=== PATIENT | male | born 1970 | race Caucasian/White ===

== ENCOUNTER 2018-04-03 10:46 | Emergency (ER) | payer MEDICAID, OTHER ==
[~2018-04-03] VITALS: Ht 182.9 cm; Wt 74.8 kg
[2018-04-03] MEDS ORDERED: fentaNYL INJECTION 100 MCG/2 ML AMP ONE (10:58)
[2018-04-03 11:09] LABS: HEMOGLOBIN 15.2 G/DL (13.3-17.7); MEAN PLATELET VOLUME 10.9 FL (7.4-10.4); RED BLOOD COUNT 4.91 10^6/uL (4.35-5.85); RED CELL DISTRIBUTION WIDTH 13.2 % (10.0-14.5); WHITE BLOOD COUNT 10.7 10^3/uL (4.3-11.0)
--- NOTE | 2018-04-03 11:09 | ED Fall/Injury ---
General Stated Complaint: FELL OFF LADDER Source: patient Exam Limitations: no limitations History of Present Illness Date Seen by Provider: Apr 03, 2018 Time Seen by Provider: 11:05 Initial Comments To ER with reports of a fall off of a ladder. He is not from here, he is from a town near [facility]. He is here helping a friend. He fell about 10-12 feet off a ladder landing on his left side. He complains of pain to the left side of his head, to his neck, left upper abdomen lower chest. He drove himself to the emergency room and is ambulatory to room 1. Questionable loss of consciousness. He is not on any anticoagulants or any antiplatelet drug. Occurred: just prior to arrival Severity: moderate Injuries/Pain Location: head, neck, abdomen Associated Symptoms (Fall): Abdominal Pain (left-sided upper), Chest Pain ( sided lower), Neck Pain Allergies and Home Medications Allergies Coded Allergies: Penicillins (Verified Allergy, Unknown, 04/03/18) Home Medications Hydrocodone/Acetaminophen 1 Each Tablet, 1 EACH PO Q4H PRN for PAIN-MODERATE Prescribed by: CJ BRAGG on 04/03/18 1216 Patient Home Medication List Home Medication List Reviewed: Yes Review of Systems Constitutional: see HPI Eyes: No Symptoms Reported Ears, Nose, Mouth, Throat: no symptoms reported Respiratory: no symptoms reported; No cough, No dyspnea on exertion, No short of breath Cardiovascular: chest pain Gastrointestinal: abdominal pain Genitourinary: no symptoms reported Musculoskeletal: no symptoms reported Skin: no symptoms reported Psychiatric/Neurological: No Symptoms Reported Past Kwddcey-Zmfcul-Dzdbkx Hx Patient Social History Recent Foreign Travel: No Contact w/Someone Who Travel: No Physical Exam Vital Signs Vital Signs - First Documented 04/03/18 10:46 Temp 96.4 Pulse 133 Resp 25 B/P (MAP) 137/80 (99) Pulse Ox 98 O2 Delivery Room Air Capillary Refill : Height, Weight, BMI Height: '" Weight: lbs. oz. kg; BMI Method: General Appearance: WD/WN, no apparent distress, other (anxious and tachycardic upon arrival with a heart rate of 113. GCS is 15 however) HEENT: PERRL/EOMI, TMs normal, other (large hematoma over the lateral aspect of the left eyebrow and superior to this.) Neck: non-tender, full range of motion; No tender lateral, No tender midline Cardiovascular: no murmur, tachycardia Respiratory: lungs clear, normal breath sounds, no respiratory distress, no accessory muscle use, other (left lateral lower chest is tender to palpation) Gastrointestinal: normal bowel sounds, soft, tenderness (left upper lateral abdomen is tender to palpation there is no ecchymosis) Extremities: normal range of motion, non-tender, other (or abrasions to the anterior knees bilaterally. No deformity or swelling. Bleeding abrasion to the dorsal aspect of the right hand over the distal third metacarpal) Neurologic/Psychiatric: alert, normal mood/affect, oriented x 3 Skin: normal color, warm/dry Mary Ellen Coma Score Best Eye Response: (4) Open Spontaneously Best Verbal Response: (5) Oriented Best Motor Response: (6) Obeys Commands Mary Ellen Total: 15 Progress/Results/Core Measures Results/Orders Lab Results Laboratory Tests Test 04/03/18 10:55 Range/Units White Blood Count 10.7 4.3-11.0 10^3/uL Red Blood Count 4.91 4.35-5.85 10^6/uL Hemoglobin 15.2 13.3-17.7 G/DL Hematocrit 46 40-54 % Mean Corpuscular Volume 93 80-99 FL Mean Corpuscular Hemoglobin 31 25-34 PG Mean Corpuscular Hemoglobin Concent 33 32-36 G/DL Red Cell Distribution Width 13.2 10.0-14.5 % Platelet Count 459 H 130-400 10^3/uL Mean Platelet Volume 10.9 H 7.4-10.4 FL Sodium Level 134 L 135-145 MMOL/L Potassium Level 3.8 3.6-5.0 MMOL/L Chloride Level 98 98-107 MMOL/L Carbon Dioxide Level 16 L 21-32 MMOL/L Anion Gap 20 H 5-14 MMOL/L Blood Urea Nitrogen 15 7-18 MG/DL Creatinine 0.94 0.60-1.30 MG/DL Estimat Glomerular Filtration Rate > 60 BUN/Creatinine Ratio 16 Glucose Level 159 H 70-105 MG/DL Calcium Level 9.9 8.5-10.1 MG/DL Corrected Calcium 9.6 8.5-10.1 MG/DL Total Bilirubin 0.5 0.1-1.0 MG/DL Aspartate Amino Transf (AST/SGOT) 16 5-34 U/L Alanine Aminotransferase (ALT/SGPT) 24 0-55 U/L Alkaline Phosphatase 55 40-136 U/L Total Protein 7.2 6.4-8.2 GM/DL Albumin 4.4 3.2-4.5 GM/DL Serum Alcohol < 10 <10 MG/DL My Orders Orders - CJ BRAGG APRN Cbc No Diff (04/03/18 11:03) Type And Screen (04/03/18 11:03) Iv Heplock-Insert (Order) (04/03/18 11:03) Comprehensive Metabolic Panel (04/03/18 11:03) Alcohol (04/03/18 11:03) Drug Screen Stat (Urine) (04/03/18 11:03) Chest 1 View, Ap/Pa Only (04/03/18 11:03) Fentanyl Injection (Sublimaze Injection (04/03/18 11:15) Ct Head/Cervical Spine Wo (04/03/18 11:05) Ct Chest/Abdomen/Pelvis W (04/03/18 11:05) Fentanyl Injection (Sublimaze Injection (04/03/18 11:45) Dipht,Pertuss(Acell),Tet Adult (Boostrix (04/03/18 12:15) Medications Given in ED Current Medications Medications Dose Ordered Sig/Andrew Route Start Time Stop Time Status Last Admin Dose Admin Fentanyl Citrate 50 mcg ONCE ONCE IVP 04/03/18 11:45 04/03/18 11:46 DC 04/03/18 11:44 50 MCG Fentanyl Citrate 75 mcg ONCE ONCE IVP 04/03/18 11:15 04/03/18 11:16 DC 04/03/18 11:05 75 MCG Vital Signs/I&O 04/03/18 10:46 Temp 96.4 Pulse 133 Resp 25 B/P (MAP) 137/80 (99) Pulse Ox 98 O2 Delivery Room Air Initial ECG Impression Time: 10:59 Initial ECG Rate: 111 Initial ECG Rhythm: S.Tach Initial ECG Intervals: Normal Initial ECG Impression: Normal Diagnostic Imaging Diagonstic Imaging: Xray Plain Films/CT/US/NM/MRI: chest Comments NAME: JEFF CARR [facility] REC#: [id number] PT STATUS: REG ER : 1970 PHYSICIAN: CJ BRAGG APRN ADMIT DATE: 04/03/18/ER Draft Date of Exam:04/03/18 CHEST 1 VIEW, AP/PA ONLY INDICATION: Fall from a ladder. TIME OF EXAM: 11:10 AM No prior studies are available for comparison. FINDINGS: The heart size is normal. The pulmonary vascularity is unremarkable. The lungs are clear. No infiltrate, effusion or pneumothorax is detected. IMPRESSION: No acute cardiopulmonary process is detected. Dictated on workstation # [id number] Dict: 04/03/18 1116 Trans: 04/03/18 1117 [id number] Interpreted by: TRACIE CLARK MD Electronically signed by: NAME: JEFF CARR [facility] REC#: [id number] PT STATUS: REG ER : 1970 PHYSICIAN: CJ BRAGG APRN ADMIT DATE: 04/03/18/ER Draft Date of Exam:04/03/18 CT CHEST/ABDOMEN/PELVIS W PROCEDURE: CT chest, abdomen, and pelvis with contrast. TECHNIQUE: Multiple contiguous axial images were obtained through the chest, abdomen, and pelvis after the administration of intravenous contrast. INDICATION: Trauma, fall from a ladder with left-sided pain. CT CHEST: No mediastinal hematoma or great vessel injury is identified. No pericardial fluid or hemothorax is detected. No parenchymal contusion or pneumothorax is identified. The bony structures are unremarkable. IMPRESSION: Unremarkable CT of the chest. CT ABDOMEN AND PELVIS: There is some generalized low density throughout the liver consistent with hepatic steatosis. No focal liver laceration is seen. The gallbladder is unremarkable. The pancreas and spleen are unremarkable. No focal splenic laceration is seen. No adrenal hematoma is identified. No renal injury is seen. There is a tiny dense structure in the left kidney, perhaps a tiny nonobstructing calculus. The aorta is non-aneurysmal. The bowel loops are nondilated. There is moderate stool in the sigmoid colon. No free fluid is seen. The bladder is unremarkable. Bony structures appear nonacute. IMPRESSION: 1. No evidence of abdominal or pelvic visceral injury. 2. Hepatic steatosis. 3. Probable tiny nonobstructing left renal calculus. Dictated on workstation # [id number] Dict: 04/03/18 1152 Trans: 04/03/18 1208 [id number] Interpreted by: TRACIE CLARK MD Electronically signed by: NAME: JEFF CARR [facility] REC#: [id number] PT STATUS: REG ER : 1970 PHYSICIAN: CJ BRAGG APRN ADMIT DATE: 04/03/18/ER Draft Date of Exam:04/03/18 CT HEAD/CERVICAL SPINE WO PROCEDURE: CT head and CT cervical spine without contrast. TECHNIQUE: Multiple contiguous axial images were obtained through the brain and cervical spine without the use of intravenous contrast. Sagittal and coronal reformations through the cervical spine were then performed. INDICATION: Fall 6-8 feet off of a ladder. CT HEAD: There is soft tissue swelling in the left frontal scalp. Ventricles and sulci are within normal limits. No sulcal effacement, midline shift or hemorrhage is detected. The cisterns are patent. No depressed calvarial fracture is seen. Paranasal sinuses are clear. IMPRESSION: Left frontal scalp hematoma. No acute intracranial process is detected. CT CERVICAL SPINE: Curvature of the cervical spine is normal. Minimal anterolisthesis C7 on T1 is seen. There are postop changes of ACDF with anterior plate and screws transfixing C3-C4 level. No hardware fracture or loosening is seen. Prevertebral tissues are normal. Odontoid is intact. There is multilevel degenerative disc and facet disease. IMPRESSION: Postop changes. No acute bony abnormality is detected. Dictated on workstation # [id number] Dict: 04/03/18 1136 Trans: 04/03/18 1233 [facility] [id number] Interpreted by: TRACIE CLARK MD Electronically signed by: Departure Communication (Admissions) 1110-he was ambulatory back to room 1 where he complained of headache neck pain and left-sided abdominal pain. 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 A rigid cervical collar was placed. He was undressed and fully exposed. GCS is 15. There is a hematoma left forehead. Anterior and posterior chest is nontender and normal on inspection. The left lateral lower chest is tender. Upper extremities are fine except for some minor abrasions over the right hand. Anterior posterior abdomen is normal inspection and nontender. The left lateral upper abdomen is tender to palpation. Pelvis is stable. Lower extremities unremarkable except For some abrasions over the anterior knees. Portable chest x -ray was obtained and reviewed and there was no pneumothorax or hemothorax. He was then taken over to the radiology department for CT had cervical spine without contrast and chest abdomen pelvis with contrast. Tachycardic at 115 sinus, blood pressure is 117/86 1236- rigid cervical collar removed at this time. Impression Primary Impression: Fall Additional Impressions: Scalp contusion LUQ abdominal tenderness Disposition: HOME, SELF-CARE Condition: Improved Departure-Patient Inst. Decision time for Depature: 12:15 Referrals: NO,LOCAL PHYSICIAN (PCP) Primary Care Physician Patient Instructions: Bruised Rib, Preventing Falls Add. Discharge Instructions: 1. Return to ER for any concerns 2. MEdication as directed 3. Follow up with your doctor next week Scripts Hydrocodone/Acetaminophen ([place] 5-325 Tablet) 1 Each Tablet 1 EACH PO Q4H PRN for PAIN-MODERATE, #10 TAB Prov: CJ BRAGG APRN 04/03/18 CJ BRAGG APRN Apr 03, 2018 11:09
[2018-04-03] MEDS ORDERED: fentaNYL INJECTION 100 MCG/2 ML AMP IVP ONE ×2 (11:15→11:45)
--- NOTE | 2018-04-03 11:18 | Diagnostic Imaging Report ---
INDICATION: Fall from a ladder. TIME OF EXAM: 11:10 AM No prior studies are available for comparison. FINDINGS: The heart size is normal. The pulmonary vascularity is unremarkable. The lungs are clear. No infiltrate, effusion or pneumothorax is detected. IMPRESSION: No acute cardiopulmonary process is detected. Dictated by: Dictated on workstation # [id number]
[2018-04-03 11:24] LABS: ALANINE AMINOTRANSFERASE 24 U/L (0-55); ALBUMIN 4.4 GM/DL (3.2-4.5); ALKALINE PHOSPHATASE 55 U/L (40-136); BILIRUBIN,TOTAL 0.5 MG/DL (0.1-1.0); BUN/CREATININE RATIO 16; CALCIUM 9.9 MG/DL (8.5-10.1); CARBON DIOXIDE 16 MMOL/L (21-32); CHLORIDE 98 MMOL/L (98-107); CREATININE SERUM 0.94 MG/DL (0.60-1.30); GFR ESTIMATED > 60; GLUCOSE 159 MG/DL (70-105); POTASSIUM 3.8 MMOL/L (3.6-5.0); SODIUM 134 MMOL/L (135-145); TOTAL PROTEIN 7.2 GM/DL (6.4-8.2)
[2018-04-03] MEDS ORDERED: HYPERTENSION MED (11:35)
[2018-04-03] MEDS ORDERED: PROZAC (11:35)
--- NOTE | 2018-04-03 12:09 | Diagnostic Imaging Report ---
PROCEDURE: CT chest, abdomen, and pelvis with contrast. TECHNIQUE: Multiple contiguous axial images were obtained through the chest, abdomen, and pelvis after the administration of intravenous contrast. INDICATION: Trauma, fall from a ladder with left-sided pain. CT CHEST: No mediastinal hematoma or great vessel injury is identified. No pericardial fluid or hemothorax is detected. No parenchymal contusion or pneumothorax is identified. The bony structures are unremarkable. IMPRESSION: Unremarkable CT of the chest. CT ABDOMEN AND PELVIS: There is some generalized low density throughout the liver consistent with hepatic steatosis. No focal liver laceration is seen. The gallbladder is unremarkable. The pancreas and spleen are unremarkable. No focal splenic laceration is seen. No adrenal hematoma is identified. No renal injury is seen. There is a tiny dense structure in the left kidney, perhaps a tiny nonobstructing calculus. The aorta is non-aneurysmal. The bowel loops are nondilated. There is moderate stool in the sigmoid colon. No free fluid is seen. The bladder is unremarkable. Bony structures appear nonacute. IMPRESSION: 1. No evidence of abdominal or pelvic visceral injury. 2. Hepatic steatosis. 3. Probable tiny nonobstructing left renal calculus. Dictated by: Dictated on workstation # [id number]
[2018-04-03] MEDS ORDERED: TETANUS,DIPTH,PERTUSS P/F (BOOSTRIX) 0.5 ML VIAL IM ONE (12:15)
[2018-04-03] MEDS ORDERED: HYDR-757 PO (12:16)
--- NOTE | 2018-04-03 12:34 | Diagnostic Imaging Report ---
PROCEDURE: CT head and CT cervical spine without contrast. TECHNIQUE: Multiple contiguous axial images were obtained through the brain and cervical spine without the use of intravenous contrast. Sagittal and coronal reformations through the cervical spine were then performed. INDICATION: Fall 6-8 feet off of a ladder. CT HEAD: There is soft tissue swelling in the left frontal scalp. Ventricles and sulci are within normal limits. No sulcal effacement, midline shift or hemorrhage is detected. The cisterns are patent. No depressed calvarial fracture is seen. Paranasal sinuses are clear. IMPRESSION: Left frontal scalp hematoma. No acute intracranial process is detected. CT CERVICAL SPINE: Curvature of the cervical spine is normal. Minimal anterolisthesis C7 on T1 is seen. There are postop changes of ACDF with anterior plate and screws transfixing C3-C4 level. No hardware fracture or loosening is seen. Prevertebral tissues are normal. Odontoid is intact. There is multilevel degenerative disc and facet disease. IMPRESSION: Postop changes. No acute bony abnormality is detected. Dictated by: Dictated on workstation # [id number]
[2018-04-03 12:52] VITALS: BP 119/70
== END 2018-04-03 12:53 | disposition home or self-care (01) ==
LOC: ER 10:50
DX: S00.03XA Contusion of scalp, initial encounter (principal); R10.12 Left upper quadrant pain; R40.2142 Coma scale, eyes open, spontaneous, at arrival to emergency department; R40.2252 Coma scale, best verbal response, oriented, at arrival to emergency department; R40.2362 Coma scale, best motor response, obeys commands, at arrival to emergency department; Z23 Encounter for immunization; Z88.0 Allergy status to penicillin; W11.XXXA Fall on and from ladder, initial encounter
CPT/HCPCS: 70450; 71045; 71260; 72125; 74177; 80053; 80320; 86850; 86900; 86901; 93005